=== PATIENT | female | born 1950 | race Caucasian/White ===

== ENCOUNTER 2019-03-16 18:16 | Inpatient (IN) ==
[2019-03-16 19:08] LABS: BASO# 0.06 X1000 (0.0-0.2); BASO% 0.6 % (0.0-0.8); EOS# 0.35 X1000 (0.0-0.7); EOS% 3.3 % (0.0-10.0); HEMATOCRIT 31.6 % (37.0-47.0); HEMOGLOBIN 10.5 g/dL (12.0-16.0); IMM GRAN% 2.8 % (0.0-0.5); LYMPH# 1.35 X1000 (1.2-3.4); LYMPH% 12.7 % (20.5-51.1); MCH 30.2 PG (27-31); MCHC 33.2 g/dL (33-37); MCV 90.8 FL (81-99); MONO# 1.15 X1000 (0.11-0.59); MONO% 10.8 % (1.7-9.3); MPV 10.3 FL (7.4-10.4); NEUT# 7.41 X1000 (1.4-6.5); NEUT% 69.8 % (42.2-75.2); PLT 484 X1000 (130-400); RBC 3.48 XMIL (4.2-5.4); RDW 12.9 % (11.5-14.5); WBC 10.62 X1000 (4.8-10.8)
[2019-03-16 19:15] LABS: INR 1.1; PROTIME 15.1 Seconds (11.0-16.0)
[2019-03-16] MEDS: CARDIZEM IV ONE ×2 (19:23→22:34)
[2019-03-16 19:27] LABS: PTT 33.9 Seconds (22.3-41.8)
[2019-03-16 19:29] LABS: AGAP 11; BUN 16 mg/dL (8-22); CALCIUM 8.6 mg/dL (8.8-10.2); CHLORIDE 96 mmol/L (98-107); COSMO 286; CREATININE 0.8 mg/dL (0.5-0.9); ESTIMATED GFR > 60; GLUCOSE 338 mg/dL (70-104); POTASSIUM 4.4 mmol/L (3.5-5.1); SODIUM 136 mmol/L (136-145); TCO2 29 mmol/L (25-35)
[2019-03-16] MEDS: CARDIZEM 125/NS 125 MG/125 ML IVPB IV SCH ×2 (22:35→23:11)
[2019-03-16] MEDS ORDERED: ATIVAN IV ONE (23:06)
[2019-03-17] MEDS ORDERED: CARDIZEM IV ONE (00:20)
[2019-03-17] MEDS ORDERED: LANOXIN IV ONE ×2 (01:14→05:30)
[2019-03-17] MEDS: LOPRESSOR PO ONE ×3 (01:26→03:13)
[2019-03-17 01:48] LABS: HEMOGLOBIN A1C 8.8 % (4.8-6.0)
[2019-03-17] MEDS ORDERED: ZOFRAN IV PRN (02:07)
[2019-03-17] MEDS ORDERED: ASPIRIN PO ONE (02:07)
[2019-03-17] MEDS: HUMALOG SUBQ SCH ×5 (03:13→22:12)
[2019-03-17 03:16] LABS: URINE SOURCE CLEAN CATCH
[2019-03-17 03:22] LABS: BILIRUBIN URINE NEGATIVE (NEGATIVE); BLOOD URINE NEGATIVE (NEGATIVE); COLOR STRAW; GLUCOSE URINE >1000 mg/dL (NEGATIVE); KETONE URINE 20 mg/dL (NEGATIVE); LEUKOCYTES URINE TRACE (NEGATIVE); NITRITE URINE NEGATIVE (NEGATIVE); PROTEIN URINE NEGATIVE (NEGATIVE); SP GRAVITY URINE 1.046; TURBIDITY URINE CLEAR (CLEAR); UROBILINOGEN URINE NORMAL (NORMAL)
--- NOTE | 2019-03-17 03:26 | HISTORY AND PHYSICAL ---
CHIEF COMPLAINT: Heart racing. HISTORY OF PRESENT ILLNESS: Ms. Martins is a 68-year-old female who Thursday, roughly 10 days ago now, had lumbar surgery at [facility]. Since that time she has gone to [facility]. She stated that for some reason her Requip for her restless leg syndrome did not get restarted in [place] and for the last several nights she has not been sleeping well. Yesterday she started feeling as if her heart was racing. They checked and she was very tachycardic, so she was sent into the ER. She was noted to have atrial fibrillation with a rapid ventricular rate and given 2 boluses of Cardizem and placed on a Cardizem drip. The patient remains in atrial fibrillation with a rapid ventricular rate in the 140s. Additional digoxin as well as metoprolol 25 mg p.o. were given and she was placed inpatient for further evaluation and treatment. PAST MEDICAL HISTORY: Hypertension, hyperlipidemia, diabetes mellitus type 2 with now insulin dependence, restless leg syndrome. PREVIOUS SURGICAL HISTORY: Lumbar back surgery around 10 days ago, ankle repair, total hip replacement. SOCIAL HISTORY: States that she has used marijuana related to back pain. Has around 2 drinks per night. Denies tobacco use. FAMILY HISTORY: Stated was positive for cardiac disease in her father, as well as diabetes mellitus in first-degree relatives. ALLERGIES: No known drug allergies. HOME MEDICATION: A list of home medications has not been reconciled. An order was placed for Nursing to reconcile home medications. The only one that the patient was able to tell me that she takes was Restoril, I am unsure what dose. REVIEW OF SYSTEMS: The patient had shortness of breath, dizziness. Denied any chest pain, nausea, vomiting, diaphoresis. Denied bowel or bladder complaints. Other pertinent positives are listed above in the HPI. Otherwise, a 14-point review of systems was negative. PHYSICAL EXAMINATION: VITAL SIGNS: Temperature 100, pulse 135, respirations 20, blood pressure 149/68, oxygen saturation 96% on room air. GENERAL: Pleasant 68-year-old female lying in the ER stretcher is alert and oriented x3, answers all questions appropriately, is in mild distress. HEENT: Head is atraumatic, normocephalic. Pupils equal, round, reactive to light. Extraocular eye movements intact. Sclerae are anicteric. Conjunctivae is pale. Oral mucosa is dry. NECK: Supple. No JVD. No thyromegaly. Trachea is midline. No cervical lymphadenopathy. CARDIAC: S1, S2 appreciated. Irregularly irregular, very tachycardic. No murmurs, gallops or rubs could be auscultated. LUNGS: Clear to auscultation bilaterally. No rhonchi, wheeze or rales. Symmetric rise and fall with respirations. ABDOMEN: Soft, nondistended, nontender. Bowel sounds present in all 4 quadrants, normoactive. No pulsatile mass. No organomegaly. EXTREMITIES: No clubbing, cyanosis or edema. Two-plus pedal pulses bilaterally. GENITOURINARY: No bladder distention. Patient voids. BACK: Midline incision clean, dry and intact from previous surgery. NEUROLOGIC: Alert and oriented x3. No focal motor deficits. Otherwise nonfocal examination. DIAGNOSTIC DATA: CT angiogram showed no pulmonary embolism. Chest x-ray: No effusions, infiltrates or edema. LABORATORY DATA: WBC 10.62, hemoglobin 10.5, hematocrit 31.6, platelet count 484,000. Coagulations within normal limits. Sodium 136, potassium 4.4, chloride 96, carbon dioxide 29, BUN 16, creatinine 0.8, glucose 338. ASSESSMENT AND PLAN: 1. Atrial fibrillation with rapid ventricular response. Continue Cardizem drip. Will give digoxin 250 IV now and repeat in 4 hours. Will give metoprolol 25 mg p.o. x1 dose. Echocardiogram in a.m. Consult Cardiology. 2. Hypertension. Will continue home medications when reconciled. 3. Diabetes mellitus type 2, now insulin-dependent. Fingerstick blood sugars q.a.c. and h.s. with sliding scale insulin. Check hemoglobin A1c. Diabetic diet. 4. Restless leg syndrome. Will restart the patient's Requip when dose is identified. Further recommendations per patient clinical course. Dictated by YUNIOR Genao for Patricia Chairez MD cc: YUNIOR Genao MD Independent exam and assessment done at beside with VICE PRESIDENT. Pt. meets requirement for AC based on benefit of CHADSvasc2 score outweighing patient's HASBLED score. Exam was notable for irregular rhythm. No findings consistent with heart failure. MTDD
[2019-03-17 03:59] LABS: UR AMPHETAMINES QUAL NONE DETECTED (NONE DETECT); UR BARBITUATES QUAL NONE DETECTED (NONE DETECT); UR BENZODIAZEPIN QUAL NONE DETECTED (NONE DETECT); UR CANNABINOIDS QUAL NONE DETECTED (NONE DETECT); UR COCAINE QUAL NONE DETECTED (NONE DETECT); UR EPITHELIAL CELLS <10 /HPF (<10); UR METHADONE QUAL NONE DETECTED (NONE DETECT); UR OPIATES QUAL NONE DETECTED (NONE DETECT); UR OXYCODONE QUAL PRESUMPTIVE POSITIVE (NONE DETECT); UR PCP QUAL NONE DETECTED (NONE DETECT); URINE BACTERIA 1+ /HPF; URINE RBC <10 /HPF (<10)
[2019-03-17 04:11] LABS: URINE CASTS GRANULAR PRESENT; URINE CRYSTALS NONE SEEN; URINE SMALL ROUND CELLS NONE SEEN; URINE YEAST NONE SEEN
[2019-03-17] MEDS: NS 1,000 ML IV SCH ×2 (04:51→19:34)
--- NOTE | 2019-03-17 06:28 | Diag Imaging Result Doc PS360 ---
CT ANGIOGRM PULMONARY ARTERIES - 03/16/2019 INDICATION: difficulty breathing TECHNIQUE: Axial CT images were obtained after administering intravenous contrast. Coronal MIP images were generated. COMPARISON: None FINDINGS: There is no pulmonary embolism. Heart and great vessels are normal. Lung volumes are low. The lungs are clear. There are advanced degenerative changes of the spine. No acute or suspicious bony lesion. IMPRESSION: Negative exam. This exam was performed using automated exposure control, adjustment of mA or kV according to patient size, and/or use of iterative reconstruction technique Electronically signed by cT Cooney 03/17/2019 6:26 AM
--- NOTE | 2019-03-17 07:14 | Diag Imaging Result Doc PS360 ---
EXAM: CHEST-2 VIEWS HISTORY: CP TECHNIQUE: Chest two views COMPARISON: None. FINDINGS: The lungs are well expanded. The heart is not enlarged. The vessels are not distended. There are no infiltrates. No pleural effusions. IMPRESSION: No acute abnormality. Electronically signed by Ethan Bartholomew 03/17/2019 7:11 AM
--- NOTE | 2019-03-17 07:53 | EKG Report ---
Test Performed on : 03/17/2019 01:12:57 AM Test Reason : ED. NO EKG ORDER FOR MUSE Blood Pressure : / mmHG Vent. Rate : 155 BPM Atrial Rate : 310 BPM P-R Int : 000 ms QRS Dur : 076 ms QT Int : 234 ms P-R-T Axes : 091 -34 -04 degrees QTc Int : 375 ms Atrial flutter. with 2:1 AV conduction. Left axis deviation Pulmonary disease pattern Junctional ST depression, probably normal Abnormal ECG When compared with ECG of 16-MAR-2019 18:24, (Unconfirmed) Atrial flutter. has replaced Atrial fibrillation. ST now depressed in Inferior leads Nonspecific T wave abnormality now evident in Inferior leads Unconfirmed Result
--- NOTE | 2019-03-17 07:54 | EKG Report ---
Test Performed on : 03/16/2019 6:24:41 PM Test Reason : ED. NO EKG ORDER FOR MUSE Blood Pressure : / mmHG Vent. Rate : 146 BPM Atrial Rate : 153 BPM P-R Int : 000 ms QRS Dur : 076 ms QT Int : 280 ms P-R-T Axes : 000 -34 053 degrees QTc Int : 436 ms Atrial fibrillation. with rapid ventricular response. Left axis deviation Abnormal ECG No previous ECGs available Unconfirmed Result
[2019-03-17] MEDS: ASPIRIN PO SCH (08:14)
[2019-03-17] MEDS: CARDIZEM 125/NS 125 MG/125 ML IVPB IV SCH (09:48)
--- NOTE | 2019-03-17 11:39 | EKG Report ---
Test Performed on : 03/17/2019 10:07:45 AM Test Reason : hr Blood Pressure : / mmHG Vent. Rate : 130 BPM Atrial Rate : 308 BPM P-R Int : 000 ms QRS Dur : 084 ms QT Int : 330 ms P-R-T Axes : 260 -19 044 degrees QTc Int : 485 ms Atrial flutter. with variable AV block. Nonspecific T wave abnormality Abnormal ECG When compared with ECG of 17-MAR-2019 01:12, (Unconfirmed) ST no longer depressed in Inferior leads Inverted T waves have replaced nonspecific T wave abnormality in Inferior leads Nonspecific T wave abnormality now evident in Lateral leads Confirmed by Pedrito CHANG, Ki Mccarthy ([id number]) on 03/17/2019 4:19:59 PM
[2019-03-17] MEDS: LOVENOX SUBQ SCH ×2 (12:00→22:13)
[2019-03-17] MEDS: LOPRESSOR PO SCH ×3 (12:00→22:13)
[2019-03-17] MEDS: REQUIP PO SCH ×2 (12:00→22:13)
--- NOTE | 2019-03-17 17:42 | CARDIOLOGY CONSULTATION ---
DATE: 03/17/2109 REQUESTING PHYSICIAN: Hospitalist service. REASON FOR CONSULT: Atrial flutter. CHIEF COMPLAINT: Back pain. HISTORY: Mrs. Martins is a 68-year-old female who recently underwent extensive back surgery in [place]. She was discharged to a rehab facility in [place] where she had been residing for the past few days. The patient was checked by her rehab doctor yesterday around early afternoon or so and they noted that she was very tachycardic. The patient did not feel any discomfort. She was found in atrial flutter and they sent her to this hospital for further management. Electrocardiogram shows atrial flutter with a rapid response. She is not having any chest pain. She felt a little dyspneic. She has not felt dizzy or syncopal. PAST MEDICAL HISTORY: Positive for chronic back pain. She has hypertension. She has had diabetes mellitus type 2. She follows with, I think it is Dr. Jacklyn Heredia in [place] for management of diabetes. She has diverticulosis, anxiety, acid reflux, and restless legs syndrome. She also sees YUNIOR Pacheco, in [place]. PAST SURGICAL HISTORY: She just had lumbar surgery. She has had ankle repair, total hip replacement, cholecystectomy, hysterectomy, breast surgery, and oral surgery. SOCIAL HISTORY: She is . She has no children. She has been smoking off and on for many years, but she is not a heavy smoker. FAMILY HISTORY: Father with coronary heart disease. ALLERGIES: Nickel. HOME MEDICATIONS: Acetaminophen, Farxiga, magnesium hydroxide, oxycodone, ropinirole (Requip) 1 mg twice a day, and spironolactone 100 daily. REVIEW OF SYSTEMS: Chronically limited by back pain. No other active issues. PHYSICAL EXAMINATION: Vital signs: Blood pressure 150/79, pulse varies from 120-144, temperature 98 degrees, respirations 16. General: She is awake, alert, oriented, in no distress. HEENT: Unremarkable. Chest: Clear to auscultation and percussion. Heart: Sounds are slightly irregular. She is not tachycardia right now. Abdomen: Soft, nontender. Extremities: Show good pulses. No peripheral edema. Neurological: Nonfocal. Moves 4 extremities. IMPRESSIONS: 1. Patient who presents with paroxysmal atrial flutter 2:1 to 3:1, right now it is about 4:1; rate is controlled. 2. History of hypertension. 3. Restless legs syndrome. 4. Diabetes mellitus. 5. Chronic back pain, status post lumbar surgery. RECOMMENDATION: At this time, we will keep the patient on a combination of metoprolol 25 mg every 6 hours, Cardizem, and we will see if she converts spontaneously. If she does not, we might have to proceed with cardioversion and probably put her on Multaq for a few weeks. At this point in time, a CT of the lungs has been done and does not show any evidence of pulmonary embolism. Echocardiogram has just been done. It shows excellent left ventricular function with a mild degree of concentric LVH. We will be following the patient with you. cc: Milton Vergara MD
[2019-03-17] MEDS: TYLENOL PO PRN (22:13)
[2019-03-18] MEDS: CARDIZEM 125/NS 125 MG/125 ML IVPB IV SCH ×2 (00:38→19:11)
[2019-03-18] MEDS: LOPRESSOR PO SCH (05:04)
[2019-03-18 05:45] LABS: BASO# 0.06 X1000 (0.0-0.2); BASO% 0.5 % (0.0-0.8); EOS# 0.65 X1000 (0.0-0.7); EOS% 5.4 % (0.0-10.0); HEMATOCRIT 32.1 % (37.0-47.0); HEMOGLOBIN 10.3 g/dL (12.0-16.0); IMM GRAN# 0.41 X1000 (0.0-0.04); IMM GRAN% 3.4 % (0.0-0.5); LYMPH# 2.04 X1000 (1.2-3.4); LYMPH% 17.1 % (20.5-51.1); MCH 29.7 PG (27-31); MCHC 32.1 g/dL (33-37); MCV 92.5 FL (81-99); MONO# 0.85 X1000 (0.11-0.59); MONO% 7.1 % (1.7-9.3); MPV 10.1 FL (7.4-10.4); NEUT# 7.92 X1000 (1.4-6.5); NEUT% 66.5 % (42.2-75.2); PLT 495 X1000 (130-400); RBC 3.47 XMIL (4.2-5.4); RDW 12.9 % (11.5-14.5); WBC 11.93 X1000 (4.8-10.8)
[2019-03-18 06:06] LABS: AGAP 11; BUN 15 mg/dL (8-22); CALCIUM 8.5 mg/dL (8.8-10.2); CHLORIDE 100 mmol/L (98-107); CHOLESTEROL 120 mg/dL (0-200); COSMO 279; CREATININE 0.6 mg/dL (0.5-0.9); ESTIMATED GFR > 60; GLUCOSE 238 mg/dL (70-104); HDL 20 mg/dL (45-65); LDL 63 mg/dL; POTASSIUM 3.9 mmol/L (3.5-5.1); SODIUM 135 mmol/L (136-145); TCO2 24 mmol/L (25-35); TRIGLYCERIDES 183 mg/dL (35-135); VLDL 37 mg/dL
[2019-03-18] MEDS: HUMALOG SUBQ SCH ×4 (06:22→21:04)
--- NOTE | 2019-03-18 07:43 | EKG Report ---
Test Performed on : 03/18/2019 06:20:24 AM Test Reason : afib/aflutter Blood Pressure : / mmHG Vent. Rate : 100 BPM Atrial Rate : 214 BPM P-R Int : 000 ms QRS Dur : 084 ms QT Int : 334 ms P-R-T Axes : 000 -18 012 degrees QTc Int : 430 ms Atrial fibrillation. Nonspecific ST abnormality Abnormal ECG When compared with ECG of 17-MAR-2019 10:07, Atrial fibrillation. has replaced Atrial flutter. ST now depressed in Inferior leads Nonspecific T wave abnormality no longer evident in Lateral leads Confirmed by Pedrito CHANG, Ki Mccarthy ([id number]) on 03/22/2019 7:26:09 PM
--- NOTE | 2019-03-18 08:15 | ECHO REPORT ---
ORDER DATE: 03/17/2019 MEASUREMENTS: 1. Septal thickness 1.7. 2. Left ventricular internal diameter in diastole 3.5. 3. Wall thickness 1.7. 4. Left ventricular internal diameter in systole 2.2. 5. Left atrium 4.0. 6. Aortic root 3.3. SUMMARY: 1. Adequate quality study. 2. Aortic valve is trileaflet and opens normally on 2-dimensional images. Mitral valve was without evidence of structural abnormality. There is mild mitral regurgitation. Tricuspid and pulmonic valves are without evidence of structural abnormality. There is mild tricuspid regurgitation. Aortic root is normal in size. There is mild dilatation of proximal ascending aorta. 3. Severe concentric left hypertrophy is demonstrated. Left ventricular chamber size is normal. Left ventricle appears hyperdynamic with estimated left ejection fraction at least 75%. No regional wall motion abnormalities evident. Systolic anterior motion of mitral valve demonstrated. Doppler demonstrates significant gradient in left ventricular outflow tract greater than 70 mmHg. Left atrium is borderline enlarged. Right atrium and right ventricle are normal in size with normal right ventricular systolic function. 4. No pericardial effusion. 5. Appearance of inferior vena cava suggests normal central venous pressure. CONCLUSIONS: 1. Mild mitral regurgitation. 2. Mild tricuspid regurgitation. 3. Mild dilatation of proximal ascending aorta. 4. 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 5. Borderline left atrial enlargement. cc: MD Wade Soliz CRNP MTDD
[2019-03-18] MEDS: REQUIP PO SCH ×3 (08:35→21:03)
[2019-03-18] MEDS: LANOXIN PO SCH (08:35)
[2019-03-18] MEDS: ASPIRIN PO SCH (08:35)
[2019-03-18] MEDS: BETAPACE PO SCH ×3 (08:36→21:03)
[2019-03-18] MEDS ORDERED: LANTUS INSULIN SUBQ SCH (09:00)
[2019-03-18] MEDS: NS 1,000 ML IV SCH (09:52)
--- NOTE | 2019-03-18 11:33 | PROGRESS NOTE ---
DATE: 03/18/2019 SUBJECTIVE: This patient is feeling better, she is not complaining of tachycardia or palpitations, no headache, no shortness of breath. She is still having atrial fibrillation but her rate is controlled. OBJECTIVE: Vital Signs: Temperature 98.2 degrees, pulse 96, respiratory rate 18, blood pressure 98/56, oxygen saturation 100% on room air. HEENT: Head normocephalic. No trauma. PERRLA. Neck: Supple. No JVD. No masses. Central trachea. Chest: Clear to auscultation. No wheezing. No rales. Cardiovascular: Irregularly irregular rate and rhythm. Abdomen: Soft, nontender, nondistended. No hepatosplenomegaly. Extremities: No edema, no clubbing, no cyanosis. Neurological: The patient is alert. She is oriented. She is following commands. Skin: On her back, she has a dressing at the level of the lower back from recent surgery. LABORATORY DATA: WBC 11.9, hemoglobin 10.3, hematocrit 32.1, platelets 495,000. Sodium 135, potassium 3.9, chloride 100, bicarbonate 24, BUN 15, creatinine 0.6, glucose 238, calcium 8.5. ASSESSMENT AND PLAN: 1. Atrial fibrillation with rapid ventricular response, rate controlled now. Cardiology Department evaluated this patient and they are adjusting her medications. She seems to be stable. We will continue to monitor. Probably she will have a cardioversion if the problem does not get better. 2. History of hypertension. Continue with the same management. 3. Restless leg syndrome. Aware. 4. Chronic back pain status post surgery. As per the patient, recently, she had a surgery done, she is not complaining of pain at this moment. No focal deficits. 5. Type 2 diabetes. Hemoglobin A1c is 8.8. I have placed this patient on Lantus 10 units daily, blood sugar is above 200. Continue with sliding scale insulin and pattern blood sugar as well. cc: Rick Lucas MD
[2019-03-18] MEDS: LOVENOX SUBQ SCH ×3 (11:54→22:26)
--- NOTE | 2019-03-18 12:23 | EKG Report ---
Test Performed on : 03/18/2019 12:16:26 PM Test Reason : conversion to sinus Blood Pressure : / mmHG Vent. Rate : 065 BPM Atrial Rate : 065 BPM P-R Int : 178 ms QRS Dur : 084 ms QT Int : 412 ms P-R-T Axes : -28 -15 002 degrees QTc Int : 428 ms Normal sinus rhythm. Normal ECG When compared with ECG of 18-MAR-2019 06:20, (Unconfirmed) Sinus rhythm. has replaced Atrial fibrillation. Vent. rate has decreased BY 35 BPM T wave amplitude has decreased in Anterior leads Confirmed by Pedrito CHANG, Ki Mccarthy ([id number]) on 03/22/2019 7:26:46 PM
[2019-03-18] MEDS: TYLENOL PO PRN (14:18)
--- NOTE | 2019-03-18 14:47 | CARDIOLOGY PROGRESS NOTE ---
DATE: 03/18/2019 CHIEF COMPLAINT: Irregular heartbeat. SUBJECTIVE: Ms. Martins is feeling better today. They have reinstated her Requip and that is making her happy. She is still not having good sleep but she generally feels more comfortable. Telemetry shows that the atrial flutter is better controlled but she is still having atrial flutter. OBJECTIVE: Vital Signs: Blood pressure is 151/58, temperature 98.5, pulse 95, and respirations 18. General: She is awake, alert, oriented, and in no distress. HEENT: Unremarkable. Respiratory: Chest is clear to auscultation and percussion. Cardiac: Heart sounds are slightly irregularly. Gastrointestinal: The abdomen is nontender. Extremities: The extremities show no edema. Neurological: Follows commands and moves all 4 extremities. LABORATORY DATA: Blood Work: Sodium is 135, potassium 3.9, BUN 15, and creatinine 0.6. LDL cholesterol is 63, total cholesterol 120, and HDL 20. Triglycerides are 183. IMPRESSION: 1. Patient with persistent atrial flutter. 2. Chronic back pain status post lumbar fusion. 3. Patient with history of hypertension. 4. Restless leg syndrome. RECOMMENDATIONS: At this time we will put her on Sotalol 80 mg twice a day. We will add digoxin. We will put her on Ramipril to optimize her blood pressure. We will see how she does over the weekend and if she converts spontaneously we will leave her on the present medications assuming that her ECG does not show any significant QT prolongation. We will monitor her CBC, BMP, and magnesium. If stable, she could go home then over the weekend or on Thursday. If she does not convert to sinus rhythm by Thursday morning, I have recommended cardioversion. I explained to her the benefits, risks, and complications of the procedure and she is in agreement. In the meantime she is being covered with enoxaparin. cc: Milton Vergara MD
[2019-03-18] MEDS ORDERED: MIRALAX PO ONE (21:50)
[2019-03-18] MEDS ORDERED: DULCOLAX PR ONE (21:51)
[2019-03-18] MEDS: COLACE PO SCH (22:26)
[2019-03-19] MEDS: TYLENOL PO PRN (01:27)
[2019-03-19] MEDS: NS 1,000 ML IV SCH ×2 (01:27→14:36)
[2019-03-19] MEDS ORDERED: MORPHINE IV ONE (03:46)
[2019-03-19] MEDS: PERCOCET-5 PO PRN ×2 (05:16→20:10)
[2019-03-19] MEDS: HUMALOG SUBQ SCH ×4 (06:06→21:42)
[2019-03-19 06:26] LABS: BASO# 0.08 X1000 (0.0-0.2); BASO% 0.8 % (0.0-0.8); EOS# 0.61 X1000 (0.0-0.7); HEMATOCRIT 30.2 % (37.0-47.0); HEMOGLOBIN 9.6 g/dL (12.0-16.0); IMM GRAN# 0.51 X1000 (0.0-0.04); LYMPH# 1.72 X1000 (1.2-3.4); LYMPH% 16.8 % (20.5-51.1); MCH 29.6 PG (27-31); MCHC 31.8 g/dL (33-37); MCV 93.2 FL (81-99); MONO# 0.58 X1000 (0.11-0.59); MONO% 5.7 % (1.7-9.3); MPV 10.2 FL (7.4-10.4); NEUT# 6.74 X1000 (1.4-6.5); NEUT% 65.7 % (42.2-75.2); PLT 526 X1000 (130-400); RBC 3.24 XMIL (4.2-5.4); RDW 12.9 % (11.5-14.5); WBC 10.24 X1000 (4.8-10.8)
[2019-03-19 06:43] LABS: AGAP 13; BUN 18 mg/dL (8-22); CALCIUM 8.2 mg/dL (8.8-10.2); CHLORIDE 101 mmol/L (98-107); COSMO 283; CREATININE 0.7 mg/dL (0.5-0.9); ESTIMATED GFR > 60; GLUCOSE 265 mg/dL (70-104); POTASSIUM 4.1 mmol/L (3.5-5.1); SODIUM 136 mmol/L (136-145); TCO2 22 mmol/L (25-35)
--- NOTE | 2019-03-19 06:55 | PROVIDER DOCUMENTATION ---
This chart was entered by Amanda Gonzalez Scribe, acting as scribe for Aakash Rainey MD. HPI-Cardiac General - General Chief Complaint: Palpitations Stated Complaint: AFIB Time Seen by Provider: 03/16/19 18:59 Source: patient Allergies/Adverse Reactions: Patient Allergies Allergy/AdvReac Type Severity Reaction Status Date / Time oanh Allergy RASH Uncoded 03/17/19 02:01 Home Medications: Home Medication List Medication Instructions Recorded Confirmed Last Taken Type Acetaminophen 325 mg PO Q4H PRN 03/17/19 03/17/19 Unknown History Dapagliflozin Propanediol [Farxiga] 10 mg PO DAILY 03/17/19 03/17/19 Unknown History Magnesium Hydroxide [Milk of 30 ml PO PRN PRN 03/17/19 03/17/19 Unknown History Magnesia] Oxycodone HCl/Acetaminophen 1 tab PO Q4-6H PRN PRN 03/17/19 03/17/19 Unknown History [Percocet 5-325 mg Tablet] Ropinirole [Requip] 1 mg PO BID 03/17/19 03/17/19 Unknown History Spironolactone 100 mg PO DAILY 03/17/19 03/17/19 Unknown History - History of Present Illness-Cardiac Nature of Presenting Problem: 68yof presents to ED cc Afib. Pt reports she is 1 week post op from back surgery, is in rehab at [facility] and hasn't had her medicine for restless legs. Pt frias s hx of DM. Pt is A&Ox3. Severity in ED: mild Onset/Duration: just prior to arrival Timing: still present, constant Modifying Factors: improves with: nothing Palpitation Quality: irregular History of arrythmia: reports: A-Fib Review of Systems - Adult - REVIEW OF SYSTEMS - ADULT Constitutional: reports: see HPI, fever. denies: chills, fatique Eyes: reports: no symptoms reported Ears, Nose, Mouth & Throat: reports: no symptoms reported Cardiovascular: reports: see HPI, irregular heart rate. denies: chest pain, syncope Respiratory: reports: no symptoms reported Gastrointestinal: reports: no symptoms reported Genitourinary: reports: no symptoms reported Musculoskeletal: reports: see HPI, other (restless legs) Integumentary: reports: no symptoms reported Neurological: reports: no symptoms reported Psychiatric: reports: no symptoms reported Endocrine: reports: no symptoms reported Hematologic/Lymphatic: reports: no symptoms reported Allergic/Immunologic: reports: no symptoms reported All Other Systems: Reviewed and Negative Past History - Adult - PAST MEDICAL HISTORY-ADULT Review of Records: reports: Nursing Assessment Review, Medications Reviewed, Social history reviewed & non-contributory. Major Childhood Illnesses: reports: denies history Cardiovascular: reports: denies history Respiratory: reports: denies history Gastrointestinal: reports: denies history Obstetrical/Gynecological: reports: denies history Genitourinary: reports: denies history Musculoskeletal: reports: denies history Neurological: reports: denies history Endocrine/Immune: reports: denies history Other Conditions: reports: denies history - IMMUNIZATION STATUS Childhood Immunizations: See Nurse Assessment Flu Vaccine: See Nurse Assessment - FAMILY HISTORY Family History: reviewed, not pertinent - SOCIAL HISTORY Smoking: denies Substance Use: alcohol Alcohol Use Frequency: twice a week Physical Exam-General - PHYSICAL EXAM-ADULT Initial Vital Signs Reviewed: Yes - CONSTITUTIONAL General Appearance: appears well, alert, mild distress. negative: anxious, combative - EYES Eyes: PERRL/EOMI, pink conjunctivae. negative: photophobia - HEAD, EARS, NOSE, MOUTH & THROAT HENMT: moist mucous membranes, normal ENT inspection, TMs normal, pharynx normal . negative: angioedema, dental decay - NECK Neck: non-tender, full range of motion, supple, normal inspection. negative: Brudzinski's sign, carotid bruit - RESPIRATORY Respiratory: chest non-tender, lungs clear, normal breath sounds, no pleuratic chest pain, no respiratory distress, no accessory muscle use. negative: crackles, rales, rhonchi - CARDIOVASCULAR Cardiovascular: normal peripheral pulses, no edema, no gallop, no JVD, no murmur , tachycardia, irregularly irregular. negative: regular rate, rhythm, bradycardia - GASTROINTESTINAL (ABDOMEN) Abdominal Exam: normal bowel sounds, non tender, soft. negative: rigid, rebound, tenderness - LYMPHATIC Lymphatic: no adenopathy. negative: striations - SKIN Integumentary: normal color, warm/dry, other (2 small incisions from recent surgery on right side that healing well). negative: diaphoresis, jaundice - NEUROLOGIC Neurologic: portable pinch riveter II-XII nml as tested, grossly normal, no motor/sensory deficits. negative: facial droop, focal weakness - PSYCHIATRIC Psych/Mental Status: normal mood/affect, normal thought content, normal thought process, oriented x 3. negative: anxious, disheveled Progress - PLAN OF CARE/RESULTS Progress/Plan/Lab Results: Orders Category Date Time Status Admit - [facility] Routine AdmDCTranf 03/17/19 02:07 Active Activity - Bedrest with BSC EVERY SHIFT NURSING Care 03/17/19 02:07 Active FSBS/Accucheck Result AC + HS Care 03/17/19 01:24 Active Intake and Output-Strict Q 8-HR ASSESS Care 03/17/19 02:07 Active Nursing- MD Consult Request ROUTINE Care 03/17/19 01:25 Completed SCD/YOBANI Application [Apply Mechanical Device] [QM] Care 03/17/19 02:07 Completed ORDERED Saline Loc NOW Care 03/16/19 18:47 Completed Update & Confirm Home Medicati ROUTINE Care 03/17/19 01:23 Completed Vital Signs Order AT ADMISSION Care 03/17/19 02:07 Completed Z-Document. for Tele Applied ORDERED Care 03/17/19 02:07 Completed Physician/Provider Consults Routine Cons 03/17/19 06:00 Ordered Heart Healthy Diet Diet 03/17/19 02:[address] ANGIOGRM PULMONARY ARTERIES [CT] Stat Exams 03/16/19 19:22 Completed cxr [CHEST-2 VIEWS] [RAD] Stat Exams 03/16/19 18:47 Completed A1C HGB W EST AVG GLUCOSE [CHEM] Routine Lab 03/17/19 01:24 Completed BASIC METABOLIC PANEL [CHEM] Routine Lab 03/18/19 05:00 Completed BASIC METABOLIC PANEL [CHEM] Stat Lab 03/16/19 18:43 Completed BLOOD CULTURE [BLDCUL] Stat Lab 03/16/19 01:30 Results CBC WITH DIFF [HEME] Routine Lab 03/18/19 05:00 Completed CBC WITH ELECTRONIC DIFF [HEME] Stat Lab 03/16/19 18:43 Completed LACTATE, PLASMA [CHEM] Stat Lab 03/16/19 22:43 Completed PROTIME WITH INR [COAG] Stat Lab 03/16/19 18:43 Completed PTT [COAG] Stat Lab 03/16/19 18:43 Completed TROPONIN T Stat Lab 03/16/19 18:43 Completed TSH Stat Lab 03/17/19 02:07 Completed UA NIMS W/REFLEX CULT [URINALYSIS] Stat Lab 03/17/19 02:28 Completed URINE DRUG SCREEN Stat Lab 03/17/19 02:28 Completed 0.9% Sodium Chloride Inj [Ns] 1,000 ml Med 03/17/19 02:07 Active IV 70 mls/hr Acetaminophen [Tylenol] Med 03/17/19 02:07 Active 650 mg PO Q6H PRN PRN Aspirin Med 03/17/19 09:00 Active 325 mg PO DAILY Aspirin Med 03/17/19 02:07 Discontinued 325 mg PO NOW ONE Digoxin [Lanoxin] Med 03/17/19 01:14 Discontinued 250 microgm IV NOW ONE Digoxin [Lanoxin] Med 03/17/19 05:30 Discontinued 250 microgm IV ONCE ONE Diltiazem 125 mg/Ns [Cardizem 125/Ns] Med 03/16/19 19:30 Active 125 mg in 125 ml IV As Directed mls/hr Diltiazem [Cardizem] Med 03/16/19 19:23 Discontinued 20 mg IV NOW ONE Diltiazem [Cardizem] Med 03/17/19 00:20 Discontinued 20 mg IV NOW ONE Insulin Lispro [Humalog] Med 03/17/19 03:00 Active See Protocol SUBQ 0700,1100,1600,2100 Lorazepam [Ativan] Med 03/16/19 23:06 Discontinued 1 mg IV NOW ONE Metoprolol [Lopressor] Med 03/17/19 01:26 Discontinued 25 mg PO NOW ONE Ondansetron [Zofran] Med 03/17/19 02:07 Active 4 mg IV Q4H PRN PRN Telemetry [OM.EQ] Routine Oth 03/17/19 02:07 Active Echo Spec/Color Doppler Routine Ther 03/17/19 08:00 Completed Transfer/Admit Order [TRANSFER] Routine Transfer 03/17/19 01:27 Completed Digoxin ordered by hospitalist Result Diagrams: 03/19/19 05:37 03/19/19 05:37 - EKG 1 Time of EKG reading by physician:: 18:24 EKG Read and Signed by:: Aakash Rainey EKG Interpretation (*Must complete 3 of following elements*): Abnormal Rate: 146 Rhythm: atrial fibrillation with rapid ventricular response [place]: left QRS: normal 2 Time of EKG reading by physician:: 01:12 EKG Read and Signed by:: Aakash Rainey EKG Interpretation (*Must complete 3 of following elements*): Abnormal (junctional st depression, probably normal pulmonary disease pattern) Rate: 155 Rhythm: atrial flutter with 2:1 AV conduction [place]: left ID Interval: normal Prior EKG Comparison: unchanged from prior - CT/MRI 1 CT Study: Angiogram Impression: See EMR Report (Small sliding hiatal hernia. No acute pulmonary embolic disease. No focal pneumonia.) Departure - Departure Date of Disposition Decision: 03/16/19 Time of Disposition Decision: 00:46 DIAGNOSIS: Atrial fibrillation with RVR Disposition: ADMITTED INPATIENT 09 Certified Medical Emergency: Emergent Condition: Serious - Critical Care Note This patient required my direct & personal management of CC.: Yes Total Time (mins): 42 Critical Care Statement: This patient required my direct personal management to treat or rule out processes, the absence of which, could potentiallly result in sudden, clinically significant life or limb threatening deterioration. Attestation - Physician/ KRISTI Attestation Patient care was provided by Advanced Practice Provider:: No The physician spent face to face time with patient:: Yes Advanced Practice Provider documentation review:: Supervising physician onsite and consulted in the evaluation and care of this patient. The physician did have a face to face encounter with the patient. This chart was documented by the indicated scribe, (Amanda Gonzalez Scribgeovanny) and accurately reflects the services I performed and decisions made by me, Aakash Rodriguez MD, as attested by the provider's signature.
[2019-03-19] MEDS: BETAPACE PO SCH ×2 (09:59→20:10)
[2019-03-19] MEDS: REQUIP PO SCH ×2 (09:59→20:10)
[2019-03-19] MEDS: LANOXIN PO SCH (09:59)
[2019-03-19] MEDS: MORPHINE IV PRN ×3 (09:59→21:49)
[2019-03-19] MEDS: COLACE PO SCH ×2 (09:59→20:10)
[2019-03-19] MEDS: MIRALAX PO SCH (09:59)
[2019-03-19] MEDS: LANTUS INSULIN SUBQ SCH (10:00)
[2019-03-19] MEDS: LOVENOX SUBQ SCH (10:03)
[2019-03-19 10:41] LABS: BANDS 1 % (0-1); BASO 2 % (0-1); EOS 6 % (1-10); LYMPHS 16 % (21-51); MONO 7 % (1-9); NRBC 1 % (0-0); SEGS 68 % (42-75)
[2019-03-19 10:42] LABS: LARGE PLATELETS 1+
--- NOTE | 2019-03-19 10:45 | PROGRESS NOTE ---
DATE: 03/19/2019 SUBJECTIVE: This patient is feeling better today. She had a better night. She converted back to sinus rhythm. I will wait for Cardiology recommendations. OBJECTIVE: Vital Signs: Temperature 97.9 degrees, pulse 67, blood pressure 148/81, oxygen saturation 100% on room air. HEENT: Head is normocephalic and atraumatic. PERRLA. Neck: Supple. No JVD. No masses. Central trachea. Chest: Clear to auscultation. No wheezing. No rales. Cardiovascular: Regular rate and rhythm. Abdomen: Soft, nontender and nondistended. No hepatosplenomegaly. Extremities: No edema, no clubbing, no cyanosis. Neurological: This patient is alert. She is oriented. She is following commands on her on. Back: She has a dressing at the level of the lower back for recent surgery that looks clean and dry. LABORATORY DATA: WBC 10, hemoglobin 9.6, hematocrit 30.2, platelets 526,000. Sodium 136, potassium 4.1, chloride 101, bicarbonate 22, BUN 18, creatinine 0.7, glucose 265, calcium 8.2, magnesium 1.8. ASSESSMENT AND PLAN: 1. Atrial fibrillation with rapid ventricular response. She converted back to sinus rhythm. Cardiology Department following this patient. I will wait for more recommendations. 2. History of hypertension. Continue with the same management. 3. Restless legs syndrome. I have increased her dose of Requip from 1 mg twice a day to 2 mg twice a day. As per the patient this is her real dose. 4. Chronic back pain status post surgery. She is not complaining of pain at this moment. No focal deficits. 5. Type 2 diabetes. Hemoglobin A1c is 8.8. I placed this patient on Lantus 10 yesterday, but her blood sugar is still above 200. I will increase it to 20 today and I will monitor. cc: Rick Lucas MD
[2019-03-19] MEDS: ASPIRIN PO SCH (12:59)
[2019-03-19] MEDS ORDERED: MAGNESIUM SULFATE 2 GM/S.W.I. 2 GM/50 ML IVPB IV ONE (13:34)
--- NOTE | 2019-03-19 18:00 | CARDIOLOGY PROGRESS NOTE ---
DATE: 03/19/2019 SUBJECTIVE: Ms. Martins reports she is doing well. She has no complaints today. No palpitations. OBJECTIVE: She is afebrile. Heart rate is 66. Blood pressure 143/61. Generally in no acute distress. She is cardiovascularly regular rate and rhythm. She has no murmurs. She has no S3. Her telemetry currently shows sinus rhythm. She has no lower extremity edema. Her chest exam is clear bilaterally. No increased work of breathing. Abdomen is soft, nontender. DIAGNOSTIC DATA: Her EKG shows sinus rhythm, 65 beats per minute. QTc of 428. LABORATORY DATA: White count of 10.2, hematocrit 30, platelet count 526,000. Her sodium is 136, potassium 4.1, BUN 18, creatinine 0.7. ASSESSMENT: Ms. Martins is a 68-year-old female who presented with atrial flutter. PLAN: She is in sinus rhythm. QTc is adequate. She is on digoxin. I will discontinue her diltiazem infusion. She has been anticoagulated. EKG is unremarkable. We will follow up with the patient tomorrow. No further recommendations at this time. cc: Emeka Calix MD
[2019-03-19] MEDS: ELIQUIS PO SCH (20:10)
[2019-03-19] MEDS ORDERED: REQUIP PO SCH (21:00)
[2019-03-20] MEDS: MORPHINE IV PRN ×4 (01:57→22:11)
[2019-03-20] MEDS: NS 1,000 ML IV SCH (03:15)
[2019-03-20 05:53] LABS: BASO# 0.06 X1000 (0.0-0.2); BASO% 0.6 % (0.0-0.8); EOS# 0.55 X1000 (0.0-0.7); EOS% 5.9 % (0.0-10.0); HEMOGLOBIN 9.8 g/dL (12.0-16.0); IMM GRAN# 0.43 X1000 (0.0-0.04); IMM GRAN% 4.6 % (0.0-0.5); LYMPH# 1.41 X1000 (1.2-3.4); MCH 30.2 PG (27-31); MCHC 32.7 g/dL (33-37); MCV 92.3 FL (81-99); MONO# 0.52 X1000 (0.11-0.59); MONO% 5.5 % (1.7-9.3); MPV 10.1 FL (7.4-10.4); NEUT# 6.42 X1000 (1.4-6.5); NEUT% 68.4 % (42.2-75.2); PLT 513 X1000 (130-400); RBC 3.25 XMIL (4.2-5.4); RDW 12.9 % (11.5-14.5); WBC 9.39 X1000 (4.8-10.8)
[2019-03-20] MEDS: HUMALOG SUBQ SCH ×4 (06:01→20:58)
[2019-03-20 06:13] LABS: AGAP 12; BUN 11 mg/dL (8-22); CHLORIDE 100 mmol/L (98-107); COSMO 273; CREATININE 0.6 mg/dL (0.5-0.9); ESTIMATED GFR > 60; GLUCOSE 156 mg/dL (70-104); SODIUM 135 mmol/L (136-145); TCO2 23 mmol/L (25-35)
[2019-03-20] MEDS: LANTUS INSULIN SUBQ SCH (08:04)
[2019-03-20] MEDS: MIRALAX PO SCH (08:04)
[2019-03-20] MEDS: REQUIP PO SCH ×2 (08:05→20:58)
[2019-03-20] MEDS: ELIQUIS PO SCH ×2 (08:05→20:59)
[2019-03-20] MEDS: COLACE PO SCH ×2 (08:05→20:58)
[2019-03-20] MEDS: LANOXIN PO SCH (08:05)
[2019-03-20] MEDS: PERCOCET-5 PO PRN ×2 (08:06→20:59)
[2019-03-20] MEDS: BETAPACE PO SCH ×2 (08:06→20:59)
--- NOTE | 2019-03-20 09:50 | PROGRESS NOTE ---
DATE: 03/20/2019 SUBJECTIVE: This patient is feeling better today, but she is complaining of back pain. We are going to continue with the Percocet, and also we are going to give her morphine as needed. She came in with atrial fibrillation RVR, which now resolved. OBJECTIVE: Vital Signs: Temperature 98.1 degrees, pulse 74, respiratory rate 18, blood pressure 149/67, oxygen saturation 98 on room air. HEENT: Head normocephalic. No trauma. PERRLA. Neck: Supple. No JVD. No masses. Central trachea. Chest: Clear to auscultation. No wheezing. No rales. Cardiovascular: Regular rate and rhythm. Abdomen: Soft, nontender, nondistended. No hepatosplenomegaly. She does have a dressing at the level of the lower back from her recent surgical procedure that looks clean and dry. Extremities: No edema, no clubbing, no cyanosis. Neurological: The patient is sleepy, but arousable, oriented x3. She is following commands. LABORATORY DATA: WBC 9, hemoglobin 9.8, hematocrit 30, platelets 513,000. Sodium 135, potassium 4, chloride 100, bicarbonate 23, BUN 11, creatinine 0.6, glucose 156, calcium 8, magnesium 1.9. ASSESSMENT AND PLAN: 1. Atrial fibrillation with rapid ventricular response, resolved now. She converted back to sinus rhythm. Cardiology Department following this patient. We will continue with same management. Hopefully tomorrow she will be discharged. 2. History of hypertension. Continue with same management. 3. Restless legs syndrome. I have increased her dose of Requip to 2 mg twice a day yesterday. As per the patient, this is the dose that she has been taking at home. 4. Chronic back pain, status post surgery. She is complaining of pain at this moment but no focal deficits. Continue with same management. 5. Type 2 diabetes. Hemoglobin A1c 8.8. I have placed this patient on Lantus 20 and it looks like the blood sugar is better controlled. We will continue with the same management for now. cc: Rick Lucas MD
--- NOTE | 2019-03-20 14:45 | CARDIOLOGY PROGRESS NOTE ---
DATE: 03/20/2019 SUBJECTIVE: Ms. Martins reports she is feeling well. She has had no palpitations overnight. PHYSICAL EXAMINATION: Vital Signs: The patient is afebrile. Her heart rate is 74. Blood pressure is 149/67. General: In no acute distress. Cardiovascular: She is in a regular rate and rhythm. She has no obvious murmurs. She has no S3. No lower extremity edema. Chest: Sounds clear bilaterally. No increased work of breathing. Abdomen: Soft, nontender. PERTINENT DATA: White count 9.4, hematocrit 30, platelet count 513,000. Sodium 135, potassium 4, BUN 11, creatinine 0.6. ASSESSMENT: Ms. Martins is a 68-year-old female who presented with atrial fibrillation. PLAN: Her EKG today was unremarkable. She is on apixaban, digoxin, and sotalol. Heart rates are well controlled. I do not have any acute cardiovascular recommendations. She seems stable for discharge at this point. cc: Emeka Calix MD
[2019-03-21] MEDS: PERCOCET-5 PO PRN ×2 (00:59→05:01)
[2019-03-21] MEDS: MORPHINE IV PRN ×2 (02:32→10:57)
[2019-03-21] MEDS: NS 1,000 ML IV SCH ×2 (05:01→09:14)
[2019-03-21 05:57] LABS: BASO# 0.07 X1000 (0.0-0.2); BASO% 0.7 % (0.0-0.8); EOS# 0.55 X1000 (0.0-0.7); EOS% 5.2 % (0.0-10.0); HEMATOCRIT 32.2 % (37.0-47.0); HEMOGLOBIN 10.4 g/dL (12.0-16.0); IMM GRAN# 0.31 X1000 (0.0-0.04); IMM GRAN% 2.9 % (0.0-0.5); LYMPH# 1.67 X1000 (1.2-3.4); LYMPH% 15.8 % (20.5-51.1); MCH 29.8 PG (27-31); MCHC 32.3 g/dL (33-37); MCV 92.3 FL (81-99); MONO# 0.88 X1000 (0.11-0.59); MONO% 8.3 % (1.7-9.3); NEUT% 67.1 % (42.2-75.2); PLT 606 X1000 (130-400); RBC 3.49 XMIL (4.2-5.4); RDW 13.1 % (11.5-14.5); WBC 10.58 X1000 (4.8-10.8)
[2019-03-21] MEDS: HUMALOG SUBQ SCH ×2 (06:01→10:57)
[2019-03-21 06:21] LABS: AGAP 10; BUN 8 mg/dL (8-22); CALCIUM 8.7 mg/dL (8.8-10.2); CHLORIDE 97 mmol/L (98-107); COSMO 274; CREATININE 0.6 mg/dL (0.5-0.9); ESTIMATED GFR > 60; GLUCOSE 164 mg/dL (70-104); POTASSIUM 3.7 mmol/L (3.5-5.1); SODIUM 136 mmol/L (136-145); TCO2 29 mmol/L (25-35)
--- NOTE | 2019-03-21 07:10 | EKG Report ---
Test Performed on : 03/21/2019 06:58:53 AM Test Reason : ATRIAL FLUTTER Blood Pressure : / mmHG Vent. Rate : 067 BPM Atrial Rate : 067 BPM P-R Int : 172 ms QRS Dur : 088 ms QT Int : 406 ms P-R-T Axes : -04 -22 009 degrees QTc Int : 429 ms Normal sinus rhythm. Normal ECG When compared with ECG of 20-MAR-2019 05:57, (Unconfirmed) T wave inversion now evident in Inferior leads Confirmed by Pedrito CHANG, Ki Mccarthy ([id number]) on 03/22/2019 7:28:25 PM
--- NOTE | 2019-03-21 07:25 | EKG Report ---
Test Performed on : 03/19/2019 06:14:58 AM Test Reason : afib/aflutter Blood Pressure : / mmHG Vent. Rate : 066 BPM Atrial Rate : 066 BPM P-R Int : 178 ms QRS Dur : 086 ms QT Int : 394 ms P-R-T Axes : -04 -63 015 degrees QTc Int : 413 ms Normal sinus rhythm. Left anterior fascicular block Abnormal ECG When compared with ECG of 18-MAR-2019 12:16, (Unconfirmed) Left anterior fascicular block is now present Confirmed by Pedrito CHANG, Ki Mccarthy ([id number]) on 03/22/2019 7:27:08 PM
--- NOTE | 2019-03-21 08:22 | EKG Report ---
Test Performed on : 03/20/2019 05:57:11 AM Test Reason : afib/aflutter Blood Pressure : / mmHG Vent. Rate : 071 BPM Atrial Rate : 071 BPM P-R Int : 176 ms QRS Dur : 084 ms QT Int : 388 ms P-R-T Axes : -18 -24 044 degrees QTc Int : 421 ms Normal sinus rhythm. Normal ECG When compared with ECG of 19-MAR-2019 06:14, (Unconfirmed) No significant change was found Confirmed by Pedrito CHANG, Ki Mccarthy ([id number]) on 03/22/2019 7:27:55 PM
[2019-03-21] MEDS ORDERED: ALTACE PO SCH (09:00)
[2019-03-21] MEDS: MIRALAX PO SCH (09:10)
[2019-03-21] MEDS: COLACE PO SCH (09:11)
[2019-03-21] MEDS: LANOXIN PO SCH (09:11)
[2019-03-21] MEDS: ELIQUIS PO SCH (09:11)
[2019-03-21] MEDS: REQUIP PO SCH (09:11)
[2019-03-21] MEDS: LANTUS INSULIN SUBQ SCH (09:12)
[2019-03-21] MEDS: BETAPACE PO SCH (09:13)
--- NOTE | 2019-03-21 09:53 | DISCHARGE SUMMARY ---
ADMISSION DATE: 03/17/2019 DISCHARGE DATE: 03/21/2019 PRIMARY CARE PHYSICIAN: Dr. Jacklyn Heredia. ADMISSION DIAGNOSES: 1. Atrial fibrillation with rapid ventricular response. 2. Hypertension. 3. Diabetes type 2. 4. Restless legs syndrome. DISCHARGE DIAGNOSES: 1. Atrial fibrillation with rapid ventricular response, resolved, now in normal sinus rhythm. 2. Hypertension. 3. Type 2 diabetes. 4. Restless legs syndrome. 5. Chronic back pain. SUMMARY OF FINDINGS: This is a 68-year-old female who presented after a 10-day history of a lumbar surgery at [facility] 10 days prior. Had gone to [facility]. States that she did not have her Requip restarted, and was having some severe leg pain from her restless legs syndrome. The day prior to arriving, she felt as though her heart was racing. The nurse checked it at rehab, and she was tachycardic, so they sent her to the emergency room. She was noted to have atrial fibrillation with RVR, was given 2 boluses of Cardizem with minimal change in the rate, so she was placed on a Cardizem drip and placed on digoxin as well as metoprolol to our CIC unit. We did do a pulmonary arteriogram on 03/16/2019 that showed a negative exam. We did an echocardiogram on 03/17/2019 that showed an estimated ejection fraction at 75% with left ventricular chamber size normal. Cardiology was consulted and followed this hospitalization. She had daily EKGs, and was noted to have converted to normal sinus rhythm on 03/18/2019 at 65, and has remained in normal sinus rhythm. This morning, it is a normal sinus rhythm at 67, so it is felt that she can safely be discharged to rehab at this time. DISCHARGE MEDICATIONS: Eliquis 5 mg p.o. b.i.d., digoxin 125 mcg p.o. daily, oxycodone 5 one p.o. every 4 to 6 hours p.r.n., MiraLAX 17 grams p.o. daily, ramipril 5 mg p.o. b.i.d., sotalol 80 mg p.o. b.i.d., Tylenol 325 mg p.o. every 4 hours p.r.n., Farxiga 10 mg p.o. daily, milk of magnesia 30 mL p.o. p.r.n., Requip 2 mg p.o. b.i.d., spironolactone 100 mg p.o. daily. FOLLOWUP: She will follow up with facility physician during the completion of her rehab stay. Then, she will follow up with her primary care physician, and she is to follow up with Cardiology once her rehab is completed too, and they will need to call the office and make an appointment. TIME SPENT: A 35-minute discharge. Dictated by YUNIOR Penny for Rick Lucas MD cc: YUNIOR Penny MD Bethany Jackson, MD Luis N. Villanueva, MD
--- NOTE | 2019-03-21 10:05 | CARDIOLOGY PROGRESS NOTE ---
DATE: 03/21/2019 CHIEF COMPLAINT: Irregular heartbeat, back pain. SUBJECTIVE: Ms. Martins has converted to sinus rhythm since 03/18/2019. Her EKG today, 03/21/2019, shows sinus rhythm, rate is 67 beats per minute, [place] is 172, QTC is 429. There is no significant QT prolongation. She is currently on digoxin 0.125 as well as apixaban 5 twice a day and sotalol 80 twice a day. The patient denies having any chest pain or palpitations. OBJECTIVE: Blood pressure right now is 170/69, temperature 98.3, pulse 70, respirations 16. She is awake, alert and oriented, in no distress. HEENT is unremarkable. Chest clear to auscultation and percussion. Heart sounds are regular and rhythmic. No gallop or murmur. Abdomen is nontender. Extremities showed no edema. Neurologic: Follows commands, moves all 4 extremities. DIAGNOSTIC DATA: Her sodium is 136, potassium 3.7, BUN is 8, creatinine 0.6, magnesium 1.9. White cell count is 10,280, hemoglobin 10.4. IMPRESSION: 1. The patient developed paroxysmal atrial fibrillation. 2. Status post back surgery. 3. Hypertension. 4. Restless leg syndrome. RECOMMENDATIONS: At this time, I am going to add ramipril 5 mg twice a day to her regimen. From my viewpoint, she may be discharged. I will arrange for her to follow up with me in 1 month since she still needs to go through rehabilitation following her recent back surgery. We may arrange for a loop recorder monitor as an outpatient. Please call me if you have any questions or concerns. cc: Milton Vergara MD
[2019-03-21 12:20] VITALS: BP 142/65
--- NOTE | 2019-03-25 00:19 | Extremity Venous Study ---
PROCEDURE NAME: Venous U/S Bilateral Legs - 03/17/2019 PROCEDURE: Bilateral lower extremity venous duplex, and color flow imaging study using the [employer] vivid E9 ultrasound System with a 9 L-D transducer. REFERRING PHYSICIAN: YULI Garcia. IDENTIFICATION: A 68-year-old female. [employer]: Mateo Vega RVT INDICATIONS: Elevated D-dimer status post back surgery. FINDINGS: The right common femoral vein and its branches, deep and superficial femoral veins, were satisfactorily imaged. They had flow through them and were compressible. The right popliteal vein, deep veins below of the right knee were all compressible and had flow through them. Superficial veins of the right lower extremity were compressible throughout their length. The left common femoral vein and its branches, deep and superficial femoral veins were also satisfactorily imaged. They had flow through them and were compressible. The left popliteal vein, deep veins below the left below the left knee were all compressible and had flow through them. Superficial veins of the left lower extremity were compressible throughout their length. INTERPRETATION: No evidence of acute deep or superficial venous thrombosis of the bilateral lower extremities. cc: MD Allison Lamar PA
== END 2019-03-21 13:45 | DRG 310 ==
LOC: SUPCPDRO → ED 18:16 → EDIPHOLD 03-17 02:19 → SUATTDRO 03-17 02:19 → 3S 03-17 04:15
PROVIDERS: ATTEND Internal Medicine
CPT/HCPCS: 71020; 71046; 71275; 80048; 80061; 80101; 80301; 80307; 80324; 80345; 80346; 80353; 80358; 80361; 80365; 81001; 82948; 83036; 83605; 83735; 83992; 84443; 84484; 85025; 85379; 85610; 85730; 87040; 87088; 93005; 93010; 93306; 93308; 93970; 96365; 96366; 96375; 99285; A9270; G0431; G0434; G0479; G0480; J1160; J1650; J1815; J2060; J2270; J3475; J7030; Q9967; XXXXX